=== PATIENT | male | born 1950 | race Caucasian/White ===

== ENCOUNTER → 2018-09-01 11:18 | Outpatient (CLI) | payer MEDICARE, OTHER, SELFPAY ==
[2018-09-01 12:44] LABS: Anion Gap 5 (5-15); BUN 15 mg/dL (7-18); BUN/Creat Ratio 22.9 RATIO (10-20); Calcium,Total 8.7 mg/dL (8.5-10.1); Chloride 105 mmol/L (98-107); Creatinine, Serum 0.66 mg/dL (0.70-1.30); EST Glomerular Filtration Rate 129 mL/min (>60); Est Glom Filt Rate - Afr Amer 156 mL/min (>60); Glucose 87 mg/dL (74-106); PSA,Total- Diagnostic 1.14 ng/mL (0.0-4.0); Potassium 4.1 mmol/L (3.5-5.1); Sodium Level 138 mmol/L (136-145)
== END ==
PROVIDERS: Family Provider Family Medicine; PCP Family Medicine; Visit Provider Family Medicine
DX: N40.0 Benign prostatic hyperplasia without lower urinary tract symptoms (principal); Z13.1 Encounter for screening for diabetes mellitus
CPT/HCPCS: 36415; 80048; 84153

== ENCOUNTER → 2019-10-09 15:15 | Outpatient (CLI) | payer MEDICARE, OTHER, SELFPAY ==
--- NOTE | 2019-10-09 15:22 | RAD_ITS ---
STUDY: X-RAY - LUMBAR SPINE REASON FOR EXAM: Male, 69 years old. Fall one week ago. Pain across the lower back. TECHNIQUE: 5 view(s) of the lumbar spine were obtained. COMPARISON: None FINDINGS: Normal lumbar lordosis. There is very minimal levoscoliosis with convexity at L3. There is a normal alignment of the vertebrae. There is multilevel endplate spondylosis of the lumbar vertebrae. There is multi-level degenerative disc disease with multi-level disc space narrowing. There is no evidence of acute fracture or loss of vertebral axial height. There is no demonstrated spondylolysis of the pars interarticulares. The soft tissue structures are unremarkable. RAD/L/S Spine Min 4 Views IMPRESSION: Degenerative changes of the spine, as detailed above. Electronically Signed: Marcello Martinez DO at 19:33 EST Tel [phone], Service support ,
== END ==
PROVIDERS: Family Provider Family Medicine; PCP Family Medicine; Referring Provider Family Medicine; Visit Provider Family Medicine
DX: S30.0XXD Contusion of lower back and pelvis, subsequent encounter (principal); X58.XXXD Exposure to other specified factors, subsequent encounter
CPT/HCPCS: 72110

== ENCOUNTER → 2019-11-03 09:11 | Outpatient (CLI) | payer MEDICARE, OTHER, SELFPAY ==
[2019-11-03 10:17] LABS: Hematocrit 46.7 % (40-54); Hemoglobin 15.6 g/dL (13.0-16.5); Mean Corp Hgb Conc 33.4 g/dL (32-36); Mean Corpuscular Hgb 31.7 pg (27.0-32.0); Mean Corpuscular Volume 94.9 fL (80-94); Mean Platelet Vol. 11.5 fl (6.2-12.0); Platelet Count 153 K/mm3 (150-450); RBC Distribution Width CV 12.9 % (11.6-14.6); RBC Distribution Width SD 45.1 fl (35.1-43.9); Red Blood Count 4.92 M/mm3 (4.6-6.2); White Blood Count 6.1 K/mm3 (4.4-11.0)
[2019-11-03 10:46] LABS: AST(SGOT) 13 U/L (15-37); Alanine Aminotransfer ALT/SGPT 22 U/L (16-61); Albumin, Serum 3.5 g/dL (3.2-5.0); Alkaline Phosphatase 59 U/L (45-117); Anion Gap 4 (5-15); BUN 16 mg/dL (7-18); BUN/Creat Ratio 24.9 RATIO (10-20); Calcium,Total 8.2 mg/dL (8.5-10.1); Chloride 107 mmol/L (98-107); Cholesterol 165 mg/dL (200); Creatinine, Serum 0.64 mg/dL (0.70-1.30); EST Glomerular Filtration Rate 131 mL/min (>60); Est Glom Filt Rate - Afr Amer 159 mL/min (>60); Globulin 3.4 g/dL (2.2-4.2); Glucose 90 mg/dL (74-106); High Density Lipoprotein 81 mg/dL; PSA,Total - Annual Screen 2.45 ng/mL (0.00-4.00); Potassium 4.3 mmol/L (3.5-5.1); Protein, Total 6.9 g/dL (6.4-8.2); Sodium Level 139 mmol/L (136-145); Triglycerides 52 mg/dL; Very Low Density Lipoprotein 10 mg/dL (5-40)
== END ==
PROVIDERS: Family Provider Family Medicine; PCP Family Medicine; Referring Provider Family Medicine; Visit Provider Family Medicine
DX: N40.0 Benign prostatic hyperplasia without lower urinary tract symptoms (principal); Z13.0 Encounter for screening for diseases of the blood and blood-forming organs and certain disorders involving the immune mechanism; Z13.1 Encounter for screening for diabetes mellitus; Z13.220 Encounter for screening for lipoid disorders; Z12.5 Encounter for screening for malignant neoplasm of prostate; Z79.899 Other long term (current) drug therapy
CPT/HCPCS: 36415; 80053; 80061; 84153; 85027; G0103

== ENCOUNTER → 2020-11-07 09:07 | Outpatient (CLI) | payer MEDICARE, OTHER, SELFPAY ==
[2020-11-07 10:34] LABS: Basophil# 0.09 X10^3/uL; Basophil% 1.4 % (0-1); Eosinophil# 0.44 X10^3/uL; Eosinophils% 7.1 % (0-5); Hematocrit 46.5 % (40-54); Lymphocyte % 30.6 % (19-41); Mean Corp Hgb Conc 32.3 g/dL (32-36); Mean Corpuscular Hgb 30.5 pg (27.0-32.0); Mean Corpuscular Volume 94.7 fL (80-94); Mean Platelet Vol. 10.9 fl (6.2-12.0); Monocyte# 0.74 X10^3/uL; Monocyte% 11.9 % (0-10); NRBC Flagged by Analyzer 0 % (0-5); Neutrophil # 3.04 X10^3/uL (2.7-7.7); Platelet Count 168 K/mm3 (150-450); RBC Distribution Width CV 12.8 % (11.6-14.6); RBC Distribution Width SD 44.8 fl (35.1-43.9); Red Blood Count 4.91 M/mm3 (4.6-6.2); White Blood Count 6.2 K/mm3 (4.4-11.0)
[2020-11-07 10:55] LABS: ALB/GLOB Ratio 1.1 RATIO (0.9-2.4); AST(SGOT) 9 U/L (15-37); Alanine Aminotransfer ALT/SGPT 20 U/L (16-61); Albumin, Serum 3.5 g/dL (3.2-5.0); Alkaline Phosphatase 52 U/L (45-117); Anion Gap 4 (5-15); BUN 13 mg/dL (7-18); BUN/Creat Ratio 17.5 RATIO (10-20); Calcium,Total 8.4 mg/dL (8.5-10.1); Chloride 105 mmol/L (98-107); Cholesterol 161 mg/dL (200); Creatinine, Serum 0.74 mg/dL (0.70-1.30); EST Glomerular Filtration Rate 111 mL/min (>60); Est Glom Filt Rate - Afr Amer 135 mL/min (>60); Globulin 3.2 g/dL (2.2-4.2); Glucose 88 mg/dL (74-106); High Density Lipoprotein 76 mg/dL; PSA,Total - Annual Screen 1.18 ng/mL (0.00-4.00); Potassium 4.3 mmol/L (3.5-5.1); Protein, Total 6.7 g/dL (6.4-8.2); Sodium Level 139 mmol/L (136-145); Triglycerides 62 mg/dL; Very Low Density Lipoprotein 12 mg/dL (5-40)
== END ==
PROVIDERS: PCP Family Medicine; Referring Provider Family Medicine; Visit Provider Family Medicine
DX: Z00.00 Encounter for general adult medical examination without abnormal findings (principal); Z12.5 Encounter for screening for malignant neoplasm of prostate
CPT/HCPCS: 36415; 80053; 80061; 84153; 85025; G0103

== ENCOUNTER 2021-12-03 09:12 | Outpatient (CLI) | payer MEDICARE, OTHER, SELFPAY ==
[2021-12-03 10:50] LABS: Anion Gap 5 (5-15); BUN 16 mg/dL (7-18); BUN/Creat Ratio 24.1 RATIO (10-20); Calcium,Total 9.2 mg/dL (8.5-10.1); Chloride 104 mmol/L (98-107); Cholesterol 194 mg/dL (200); Creatinine, Serum 0.66 mg/dL (0.70-1.30); EST Glomerular Filtration Rate 126 mL/min (>60); Est Glom Filt Rate - Afr Amer 153 mL/min (>60); Glucose 80 mg/dL (74-106); High Density Lipoprotein 95 mg/dL; PSA,Total- Diagnostic 1.28 ng/mL (0.0-4.0); Potassium 4.9 mmol/L (3.5-5.1); Sodium Level 138 mmol/L (136-145); Triglycerides 45 mg/dL; Very Low Density Lipoprotein 9 mg/dL (5-40)
== END 2021-12-03 23:59 | disposition short-term general hospital (02) ==
LOC: MFPLAB 09:16
PROVIDERS: PCP Family Medicine; Referring Provider Family Medicine; Visit Provider Family Medicine
DX: N40.0 Benign prostatic hyperplasia without lower urinary tract symptoms (principal); Z13.220 Encounter for screening for lipoid disorders; Z13.1 Encounter for screening for diabetes mellitus
CPT/HCPCS: 36415; 80048; 80061; 84153

== ENCOUNTER → 2022-12-09 | Outpatient (CLI) | payer MEDICARE, OTHER, SELFPAY ==
[2022-12-09 11:06] LABS: Anion Gap 4 (5-15); BUN 12 mg/dL (7-18); BUN/Creat Ratio 19.3 RATIO (10-20); Chloride 107 mmol/L (98-107); Cholesterol 183 mg/dL (200); Creatinine, Serum 0.62 mg/dL (0.70-1.30); EST Glomerular Filtration Rate 136 mL/min (>60); Est Glom Filt Rate - Afr Amer 164 mL/min (>60); Glucose 86 mg/dL (74-106); High Density Lipoprotein 89 mg/dL; PSA,Total - Annual Screen 1.36 ng/mL (0.00-4.00); Potassium 4.5 mmol/L (3.5-5.1); Sodium Level 140 mmol/L (136-145); Triglycerides 66 mg/dL; Very Low Density Lipoprotein 13 mg/dL (5-40)
== END | disposition home or self-care (01) ==
LOC: MFPLAB 09:19
PROVIDERS: PCP Family Medicine; Visit Provider Family Medicine
DX: Z13.1 Encounter for screening for diabetes mellitus (principal); Z13.220 Encounter for screening for lipoid disorders; Z12.5 Encounter for screening for malignant neoplasm of prostate; N40.0 Benign prostatic hyperplasia without lower urinary tract symptoms
CPT/HCPCS: 36415; 80048; 80061; 84153; G0103

== ENCOUNTER 2023-06-20 18:29 | Emergency (ER) | payer MEDICARE, OTHER, SELFPAY ==
[2023-06-20 18:30] VITALS: BP 137/94; PULSE 74; RESP 18; TEMP 36.3; O2SAT 97; BMI 29.5
--- NOTE | 2023-06-20 19:08 | EX.ED.DYSGE1 ---
HPI <BRYNN Culp - Last Filed: 06/20/23 19:12> History of Present Illness Chief Complaint: Laceration Narrative Narrative: Patient is 72-year-old male with no stated medical history presents to the emergency department the right hand laceration. Patient she was working on a sink when he struck his hand on something sharp. Patient has a 2 cm laceration to the part of the hand just before the wrist. Patient has no difficulty moving his hands fingers or wrist. Patient is concerned with the amount of blood and is here for evaluation PFSH <BRYNN Culp - Last Filed: 06/20/23 19:12> PFSH Allergy/AdvReac Type Severity Reaction Status Date / Time ragweed pollen Allergy Mild SNEEZE Unverified 06/20/23 18:30 ROS <BRYNN Culp - Last Filed: 06/20/23 19:12> ROS ED ROS Narrative Constitutional: Negative for fever, chills, weight loss, weakness Eyes: Negative for vision loss, vision change, double vision ENT: Negative for any sore throat, ear pain, congestion Cardiovascular: Negative for any chest pain, tightness, palpitations Respiratory: Negative for any cough, sputum production, hemoptysis, dyspnea, dyspnea on exertion, orthopnea Gastrointestinal: Negative for any abdominal pain, nausea, vomiting, diarrhea, constipation, blood in stool, blood in vomit : Negative for any urinary frequency, dysuria, retention, blood in urine Muscle skeletal: Negative for any muscle joint pain, stiffness, myalgias, arthralgias, neck pain, back pain Neurological: Negative for any headache, syncope, numbness or tingling, dizziness Skin: Negative for any rashes, lumps, itching, abrasions. Positive for laceration to the right hand Psychiatric: Negative for any depression, anxiety, stress, suicidal ideation, homicidal ideation Hematologic: Negative for any easy bruising, excessive bruising, easy bleeding Allergies: Negative for any eczema, hives, rash EXAM <BRYNN Culp Last Filed: 06/20/23 19:12> Physical Exam Narrative Exam Narrative: Vital signs reviewed. Extremities: No peripheral edema, no signs of gross trauma or deformity. Active full range of motion of all extremities. Patient is a 2 cm horizontal laceration to the base of the hand on the radial aspect. There is no tendon involvement. Patient able make a fist, open his hands against resistance. Range of motion of the wrist is unremarkable. +2 radial pulse. Neuro: Cranial nerves II through XII intact, no focal neurological deficits. Skin: Clean dry and intact with no rash, purpura, petechiae, vesicles or pustules. Backs/flank: No CVA tenderness, no midline spinal tenderness, no deformity. Psych: Normal mood and affect. No SI, HI or acute psychosis. Const Vital Signs: 06/20/23 18:30 Temperature 97.4 F L Temperature Source Temporal Pulse Rate 74 Respiratory Rate 18 Blood Pressure 137/94 H Blood Pressure Mean 108 Pulse Ox 97 Oxygen Delivery Method Room Air Positive well nourished and well developed General Appearance ED: well developed <Dr. Kaz Painter, - Last Filed: 06/20/23 19:20> Physical Exam Const Vital Signs: 06/20/23 18:30 Temperature 97.4 F L Temperature Source Temporal Pulse Rate 74 Respiratory Rate 18 Blood Pressure 137/94 H Blood Pressure Mean 108 Pulse Ox 97 Oxygen Delivery Method Room Air MDM <BRYNN Culp - Last Filed: 06/20/23 19:12> [facility] Treatment and Re-Evaluation :: Patient appears generally well, patient appears nontoxic, vital signs are stable. Patient presents to the emergency department with complaints of a horizontal 2 cm laceration to the base of the right hand. This injury shows no tendon involvement. There is no foreign body noted. I did place 5 simple erupted sutures to the right hand, patient tolerated well. Please see procedure note for specifics. Patient had these removed in 7 to 10 days. His tetanus vaccination is up-to-date. He will keep the area clean and dry. All questions answered, patient stable for discharge <Dr. Kaz Painter, - Last Filed: 06/20/23 19:20> [facility] Narrative Medical decision making narrative: I have personally performed a face to face assessment of the patient and have reviewed the KATHI Note. I performed a substantive portion of the visit including all aspects of the following. My marcos findings include: History: Patient presents with laceration to his right hand that occurred today. Patient states he was installing a range in his kitchen when he hit the back of his hand on a sharp metal edge. Patient states the bleeding persisted for several minutes. Patient denies any paresthesias or weakness. Patient states his last tetanus was within 5 years. Patient denies any other injuries. Exam: Vital signs are stable. Patient is afebrile. Patient is in no acute distress. There is a 2.5 cm full-thickness linear laceration over the dorsal aspect of the base of the first metacarpal. There is mild bleeding noted. There are no foreign bodies noted. Strength is 5/5 in flexion extension of the MP, and IP joints of the right thumb. There are no sensory deficits noted. Capillary refill was less than 2 seconds in all digits. Medical Decision Making: The wound was cleaned and irrigated with copious amounts of normal saline. The wound was anesthetized and closed by the KATHI under my supervision. Patient was instructed to keep the wound clean and dry. Patient was instructed to follow-up with his primary care physician in 7 to 10 days for wound recheck and suture removal. Patient understood and was agreeable with the plan. All questions were answered. Treatment and Re-Evaluation :: Patient appears generally well, patient appears nontoxic, vital signs are stable. Patient presents to the emergency department with complaints of a horizontal 2 cm laceration to the base of the right hand. This injury shows no tendon involvement. There is no foreign body noted. I did place 5 simple interrupted sutures to the right hand, patient tolerated well. Please see procedure note for specifics. Patient had these removed in 7 to 10 days. His tetanus vaccination is up-to-date. He will keep the area clean and dry. All questions answered, patient stable for discharge Procedures <BRYNN Culp - Last Filed: 06/20/23 19:12> Lacerations Right hand laceration: Length: 2 cm Depth: Skin Shape: Linear Laceration repair: Lidocaine with epi Irrigated (ml): 150 Number of Sutures/[place]: 5 Suture Information: Ethilon, Simple and 5-0 Comment: Sterile gloves, sterile drapes were used. Patient tolerated well. Discharge Plan Triage Chief Complaint: Laceration ED Midlevel Provider: [place] ED Provider: Kaz Painter Dx/Rx/DC Orders Clinical Impression: Hand laceration Instructions: ED Laceration Hand with ... Primary Care Provider: Anthony Del Castillo Referrals: Anthony Del Castillo MD [Primary Care Provider] - Activity Restrictions/Additional Instructions: Have the sutures removed in 7 to 10 days. Keep the area clean and dry. Disposition Disposition: Home, Self Care
== END 2023-06-20 19:39 | disposition home or self-care (01) ==
PROVIDERS: Emergency Provider Emergency Medicine; PCP Family Medicine; Visit Provider Emergency Medicine
DX: S61.411A Laceration without foreign body of right hand, initial encounter (principal); W26.8XXA Contact with other sharp object(s), not elsewhere classified, initial encounter
CPT/HCPCS: 12001; 99282

== ENCOUNTER → 2023-12-23 | Outpatient (CLI) | payer MEDICARE, OTHER, SELFPAY ==
[2023-12-23 12:46] LABS: Anion Gap 2 (5-15); BUN 17 mg/dL (7-18); BUN/Creat Ratio 28.9 RATIO (10-20); Calcium,Total 8.9 mg/dL (8.5-10.1); Chloride 105 mmol/L (98-107); Cholesterol 158 mg/dL (200); Creatinine, Serum 0.59 mg/dL (0.70-1.30); EST Glomerular Filtration Rate 144 mL/min (>60); Est Glom Filt Rate - Afr Amer 174 mL/min (>60); Glucose 87 mg/dL (74-106); High Density Lipoprotein 71 mg/dL; PSA,Total - Annual Screen 1.72 ng/mL (0.00-4.00); Potassium 4.3 mmol/L (3.5-5.1); Sodium Level 135 mmol/L (136-145); Triglycerides 65 mg/dL; Very Low Density Lipoprotein 13 mg/dL (5-40)
== END | disposition home or self-care (01) ==
LOC: MFPLAB 10:26
PROVIDERS: PCP Family Medicine; Visit Provider Family Medicine
DX: Z13.220 Encounter for screening for lipoid disorders (principal); N40.0 Benign prostatic hyperplasia without lower urinary tract symptoms; Z13.1 Encounter for screening for diabetes mellitus
CPT/HCPCS: 36415; 80048; 80061; 84153; G0103

== ENCOUNTER → 2024-12-11 | Outpatient (CLI) | payer MEDICARE, OTHER, SELFPAY ==
--- NOTE | 2024-12-11 12:37 | RAD_ITS ---
STUDY: X-RAY - RIGHT ANKLE REASON FOR EXAM: Male, 74 years old. Crush injury TECHNIQUE: 3 view(s) of the ankle. COMPARISON: None. FINDINGS: Normal visualized distal tibia and fibula. Normal medial and lateral malleoli. Normal tibiotalar articulation and ankle mortise. Normal visualized talus and calcaneus. The visualized subtalar, talonavicular, calcaneocuboid and tarsal articulations are normal. Soft tissue swelling. RAD/Ankle min 3 Views IMPRESSION: Soft tissue swelling. No fracture seen. Electronically Signed: Eusebio Rg MD at 13:42 EST ,
--- NOTE | 2024-12-11 12:37 | RAD_ITS ---
STUDY: X-RAY - RIGHT FOOT CLINICAL: Male, 74 years old. Crush injury TECHNIQUE: 3 view(s) of the foot. COMPARISON: None. FINDINGS: Normal talus, calcaneus, and tarsal bones. Normal visualized subtalar, talonavicular, calcaneocuboid, tarsal and tarsometatarsal articulations. Normal metatarsi. Normal metatarsophalangeal joint of the great toe. Normal tibial and fibular sesamoid bones. Normal interphalangeal joint of the great toe. Normal phalanges of the great toe. Normal second through fifth metatarsophalangeal joints. Normal interphalangeal joints and phalanges of the lesser toes. Soft tissue swelling. RAD/Foot min 3 Views IMPRESSION: Soft tissue swelling. No fracture is seen. Electronically Signed: Eusebio Rg MD at 13:41 EST ,
== END | disposition home or self-care (01) ==
LOC: MTRAD 12:37
PROVIDERS: PCP Family Medicine; Referring Provider Family Medicine; Visit Provider Family Medicine
DX: S90.31XA Contusion of right foot, initial encounter (principal); X58.XXXA Exposure to other specified factors, initial encounter
CPT/HCPCS: 73610; 73630

== ENCOUNTER → 2024-12-27 | Outpatient (CLI) | payer MEDICARE, OTHER, SELFPAY ==
[2024-12-27 13:13] LABS: Anion Gap 7 (5-15); BUN 18 mg/dL (7-18); BUN/Creat Ratio 25.4 RATIO (10-20); Chloride 106 mmol/L (98-107); Cholesterol 169 mg/dL (200); Creatinine, Serum 0.71 mg/dL (0.70-1.30); EST Glomerular Filtration Rate 116 mL/min (>60); Est Glom Filt Rate - Afr Amer 140 mL/min (>60); Glucose 93 mg/dL (74-106); High Density Lipoprotein 77 mg/dL; PSA,Total - Annual Screen 1.76 ng/mL (0.00-4.00); Potassium 4.6 mmol/L (3.5-5.1); Sodium Level 139 mmol/L (136-145); Triglycerides 62 mg/dL; Very Low Density Lipoprotein 12 mg/dL (5-40)
== END | disposition home or self-care (01) ==
LOC: MTLAB 09:23
PROVIDERS: PCP Family Medicine; Referring Provider Family Medicine; Visit Provider Family Medicine
DX: Z13.220 Encounter for screening for lipoid disorders (principal); Z13.1 Encounter for screening for diabetes mellitus; Z12.5 Encounter for screening for malignant neoplasm of prostate
CPT/HCPCS: 36415; 80048; 80061; 84153; G0103